=== PATIENT | male | born 1935 | race Hispanic/Latino ===

== ENCOUNTER 2019-02-18 12:45 | Emergency (ER) | payer OTHER ==
[~2019-02-18 12:45] MED LIST: ATOR40TA71 PO; DOXY100C2 PO; LISI40TA4 PO; OMEG1CAP12 PO; TRAM50TA4 PO; TRAZ-185 PO; VITA150T PO
[2019-02-18 14:07] LABS: BASOPHILS % (AUTO) 2.1 % (0.0-5.0); EOSINOPHILS % (AUTO) 1.6 % (0.0-8.0); HEMATOCRIT 36.6 % (42-54); LYMPHOCYTES % (AUTO) 37.2 % (21.0-51.0); MEAN CORPUSCULAR HEMOGLOBIN 33.3 pg (27.0-33.0); MEAN CORPUSCULAR HGB CONC 34.1 g/dL (32.0-36.0); MEAN CORPUSCULAR VOLUME 97.7 fL (79-99); MONOCYTES % (AUTO) 10.7 % (3.0-13.0); NEUTROPHILS % (AUTO) 48.4 % (40.0-77.0); NUCLEATED RED BLOOD CELLS 0.1 % (0.0-0.19); PLATELET COUNT (AUTO) 189 K/uL (130-400); RED BLOOD CELL COUNT(AUTO) 3.74 MIL/uL (4.50-6.20); RED CELL DISTRIBUTION WIDTH 14.6 % (11.0-15.5); WHITE BLOOD COUNT (AUTO) 5.1 K/uL (4.8-10.8)
[2019-02-18 14:17] LABS: CREATININE 1.3 mg/dL (0.5-1.5); POTASSIUM 3.9 mmol/L (3.5-5.1)
== END 2019-02-18 19:25 | disposition home or self-care (01) ==
LOC: EDH 12:45
DX: F10.129 Alcohol abuse with intoxication, unspecified (principal); Y90.6 Blood alcohol level of 120-199 mg/100 ml
CPT/HCPCS: 36415; 80048; 85025; 99283; G0480 ×2

== ENCOUNTER → 2024-12-10 | Outpatient (CLI) | payer OTHER ==
[~2024-12-10] MED LIST changes: +ACET-66 PO; +DICL20GE TP; -DOXY100C2 PO; +DOXY100C5 PO; -LISI40TA4 PO; +LISI40TA9 PO; +PRED20TA3 PO
--- NOTE | 2024-12-14 10:43 | HMCSR ---
APPROVED REPORT EXAM: Two-dimensional and M-mode echocardiogram with Doppler and color Doppler. INDICATION ICD: I10.0 Essential (primary) Hypertension 2D Dimensions RVDd4.0 cmLVEF(%)55.0 (>50%)LVED Vol(simp.)116.0 mL IVSd1.0 (0.7-1.1cm)FS(%)27 %LVES Vol(simp.)48.0 mL LVDd4.8 (3.8-5.6cm)Ao Root(2D)3.4 (2.0-3.7cm)LVEF(%, simp.)58 % PWd1.0 (0.7-1.1cm)LVOT diam2.0 (1.8-2.4cm)LA ESV INDEX (BP)37.21 mL/m2 LVDs3.5 (2.5-4.0cm) Aortic Valve AoV Vmax1.7 m/David Peak GR11.3 mmHgLVOT Vmax1.1 m/s AoV VTI0.4 mAo Mean GR5.1 mmHgLVOT VTI0.24 m TARAS (VMAX)2.1 cm2Al P1/2T439 msAVA (VTI) 2.1 cm2 Mitral Valve MV E Vmax43.2 cm/sDECEL Jbjy005 ms MV A Vmax88.3 cm/sP 1/2 T79 ms E/A ratio0.5MVA (PHT)2.8 cm2 TDI E/E' Votaof96.6E/E' Newuboh37.8 Pulmonary Valve PV Vmax0.9 m/sPV VTI0.21 mPV Mean GR2 mmHg PV Peak GR3.2 mmHg Tricuspid Valve TR Vmax2.9 m/sRAP (EST) 8 skVqVBWZ25.4 mmHg TR Peak GR34.4 mmHg Left Ventricle Left ventricular cavity size is normal. There is normal LV segmental wall motion. There is normal lef t ventricular wall thickness. LVEF is 55-60%. No left ventricle thrombus noted on this study. Grade 2 diastolic dysfunction. Right Ventricle The right ventricle is normal size. The right ventricular systolic function is normal. Atria The left atrium size is normal. The right atrium size is normal. Aortic Valve Aortic valve is trileaflet. Aortic valve leaflets are sclerotic but open well. Mild to moderate aorti c regurgitation. There is no aortic valvular stenosis. Mitral Valve Mitral valve leaflets are mildly sclerotic but open well. Mitral annular calcification is mild. Mari l regurgitation is trace. There is no mitral valve stenosis. Tricuspid Valve The tricuspid valve leaflets appear normal. There is mild to moderate tricuspid regurgitation. Right ventricular systolic pressure is estimated at 40-50 mmHg. Pulmonic Valve Pulmonic valve is not well visualized. There is trace pulmonic valvular regurgitation. Great Vessels The aortic root is normal in size. IVC is not well visualized. Pericardium No pericardial effusion. Conclusion Left ventricular cavity size is normal. LVEF is 55-60%. Grade 2 diastolic dysfunction. The right ventricle is normal size. The left atrium size is normal. Aortic valve is trileaflet. Aortic valve leaflets are sclerotic but open well. Mild to moderate aortic regurgitation. There is no aortic valvular stenosis. Mitral valve leaflets are mildly sclerotic but open well. Mitral annular calcification is mild. Mitral regurgitation is trace. There is mild to moderate tricuspid regurgitation. Right ventricular systolic pressure is estimated at 40-50 mmHg. The aortic root is normal in size. No pericardial effusion.
== END | disposition home or self-care (01) ==
LOC: SHCH 09:38
PROVIDERS: ATTEND Internal Medicine Cardiovascular Disease
DX: I08.3 Combined rheumatic disorders of mitral, aortic and tricuspid valves (principal); I11.9 Hypertensive heart disease without heart failure; R01.1 Cardiac murmur, unspecified
CPT/HCPCS: 93306

== ENCOUNTER → 2024-12-26 | Outpatient (CLI) | payer OTHER ==
--- NOTE | 2024-12-28 07:28 | HMCSR ---
APPROVED REPORT Bilateral Lower Extremity Venous Study for DVT., Venous Competence. Indications i87.1, i87.2 Vein Imaging CFV (R): Normal flow, augmentation and compression. No evidence of DVT. 12.0mm 911ms of reflux. SFJ (R): Normal flow, augmentation and compression. No evidence of DVT. FEM (R): Normal flow, augmentation and compression. No evidence of DVT. Mid 667ms, Distal 939ms of re flux. POP (R): Normal flow, augmentation and compression. No evidence of DVT. DFV (R): Normal flow, augmentation and compression. No evidence of DVT. PTV (R): Normal flow, augmentation and compression. No evidence of DVT. Peroneals (R): Normal flow, augmentation and compression. No evidence of DVT. CFV (L): Normal flow, augmentation and compression. No evidence of DVT. [id number] of reflux. SFJ (L): Normal flow, augmentation and compression. No evidence of DVT. FEM (L): Normal flow, augmentation and compression. No evidence of DVT. POP (L): Normal flow, augmentation and compression. No evidence of DVT. DFV (L): Normal flow, augmentation and compression. No evidence of DVT. PTV (L): Normal flow, augmentation and compression. No evidence of DVT. Peroneals (L): Normal flow, augmentation and compression. No evidence of DVT. Technologist Impression Deep veins of the bilateral lower extremities appear patent and compressible without thrombus. Deep venous reflux noted in the LCFV. Superficial venous insufficiency noted in the RSSV. RGSV junction 5.3mm 0.0ms thigh 3.6mm 0.0ms knee 2.8mm 0.0ms calf 2.1mm 0.0ms RSSV prox 3.5mm 772ms mid 3.4mm 0.0ms LGSV junction 5.4mm 0.0ms thigh 2.8mm 0.0ms knee 2.4mm 0.0ms calf 1.9mm 0.0ms LSSV prox 2.7mm 0.0ms mid 2.7mm 0.0ms Conclusion Deep veins of the bilateral lower extremities appear patent and compressible without thrombus. Deep venous reflux noted in the LCFV. Superficial venous insufficiency noted in the RSSV. Conclusion Deep veins of the bilateral lower extremities appear patent and compressible without thrombus. Deep venous reflux noted in the LCFV. Superficial venous insufficiency noted in the RSSV.
== END | disposition home or self-care (01) ==
LOC: SHCH 12:35
PROVIDERS: ATTEND Internal Medicine Cardiovascular Disease
DX: I87.2 Venous insufficiency (chronic) (peripheral) (principal); I87.1 Compression of vein
CPT/HCPCS: 93970

== ENCOUNTER 2025-03-15 10:16 | Day surgery (SDC) | payer OTHER ==
[2025-03-10 13:43] VITALS: PULSE 62; RESP 18; TEMP 98.2
[2025-03-10 13:53] LABS: BASOPHILS # (AUTO) 0.08 K/uL (0.00-0.20); BASOPHILS % (AUTO) 1.3 % (0.0-5.0); EOSINOPHILS # (AUTO) 0.12 K/uL (0.00-0.70); EOSINOPHILS % (AUTO) 1.9 % (0.0-8.0); HEMATOCRIT 35.4 % (42-54); IMMATURE GRANULOCYTE ABSOLUTE 0.03 K/uL (0-1); LYMPHOCYTES # (AUTO) 1.8 K/uL (1.0-4.8); LYMPHOCYTES % (AUTO) 27.6 % (21.0-51.0); MEAN CORPUSCULAR HEMOGLOBIN 32.2 pg (27.0-33.0); MEAN CORPUSCULAR HGB CONC 33.1 g/dL (32.0-36.0); MEAN CORPUSCULAR VOLUME 97.5 fL (79-99); MONOCYTES % (AUTO) 15.1 % (3.0-13.0); NEUTROPHILS # (AUTO) 3.4 K/uL (1.8-7.7); NEUTROPHILS % (AUTO) 53.6 % (40.0-77.0); PLATELET COUNT (AUTO) 200 K/uL (130-400); RED BLOOD CELL COUNT(AUTO) 3.63 MIL/uL (4.50-6.20); RED CELL DISTRIBUTION WIDTH 13.1 % (11.0-15.5); WHITE BLOOD COUNT (AUTO) 6.3 K/uL (4.8-10.8)
[2025-03-10 14:02] LABS: CREATININE 1.6 mg/dL (0.5-1.3); POTASSIUM 4.7 mmol/L (3.5-5.1)
[2025-03-10 14:07] LABS: INR 1.01 (0.85-1.15); PROTHROMBIN TIME 10.7 SEC (9.6-11.6)
[2025-03-10 14:08] LABS: PARTIAL THROMBOPLASTIN TIME 26.1 SEC (26.3-35.5)
--- NOTE | 2025-03-10 14:28 | EKG ---
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
[~2025-03-15] VITALS: Ht 162.6 cm; Wt 70.3 kg
[2025-03-15] VITALS (10 sets, daily range): BP systolic 140–179; BP diastolic 49–73; PULSE 58–67; RESP 14–18; TEMP 97.3–97.7
[~2025-03-15 10:16] MED LIST changes: -ACET-66 PO; -ATOR40TA71 PO; -DICL20GE TP; -DOXY100C5 PO; -LISI40TA9 PO; +LOSA50TA64 PO; -OMEG1CAP12 PO; -PRED20TA3 PO; -TRAM50TA4 PO; -TRAZ-185 PO; -VITA150T PO
[2025-03-15] MEDS ORDERED: LIDOCAINE HCL 1% MDV 50ML VIAL ONE (15:25)
[2025-03-15] MEDS ORDERED: SODIUM BICARB 50MEQ 50ML VIAL 50 ML ONE (15:25)
[2025-03-15] MEDS ORDERED: BUPIvacaine/PF 0.25% 30ML VIAL IJ ONE (15:26)
[2025-03-15] MEDS ORDERED: ceFAZolin SODIUM 1 GM VIAL ONE (15:26)
[2025-03-15] MEDS ORDERED: FENTanyl CITRate PF 50 MCG/1 ML 2ML VIAL ONE (15:49)
[2025-03-15] MEDS ORDERED: MIDAZOLAM HCL 1 MG/ML 2ML VIAL ONE ×3 (15:49→16:28)
[2025-03-15] MEDS ORDERED: acetaMINOPHEN WITH coDEINE 1 TAB TAB PO PRN ×2 (17:00)
[2025-03-15] MEDS: ceFAZolin SODIUM 1 GM VIAL IVPB SCH (19:14)
== END 2025-03-15 20:05 | disposition home or self-care (01) ==
LOC: DAH 10:16
PROVIDERS: ATTEND Internal Medicine Cardiovascular Disease
DX: Z45.010 Encounter for checking and testing of cardiac pacemaker pulse generator [battery] (principal); I49.5 Sick sinus syndrome; R00.1 Bradycardia, unspecified; I10 Essential (primary) hypertension; E78.5 Hyperlipidemia, unspecified; F41.9 Anxiety disorder, unspecified; F32.A Depression, unspecified; I73.9 Peripheral vascular disease, unspecified; M54.16 Radiculopathy, lumbar region; E66.9 Obesity, unspecified; Z86.2 Personal history of diseases of the blood and blood-forming organs and certain disorders involving the immune mechanism; Z79.01 Long term (current) use of anticoagulants; Z68.26 Body mass index [BMI] 26.0-26.9, adult
CPT/HCPCS: 80048; 85025; 85610; 85730; 36415; 93005; 33228; C1785; J3010; J0690 ×2; J0665; J3490 ×2; J2250 ×3; A4215; A4222; A4221; A4663; A4216; A4606; A4223 ×3; 99156; 99157